=== PATIENT | male | born 2000 | race Caucasian/White ===

== ENCOUNTER 2020-11-30 14:48 | Emergency (ER) | payer MEDICAID, OTHER ==
[~2020-11-30] VITALS: Ht 172.7 cm; Wt 72.7 kg
[2020-11-30 16:58] VITALS: BP 144/63
== END 2020-11-30 17:11 | disposition home or self-care (01) ==
LOC: EMS 14:48
DX: B35.4 Tinea corporis (principal)
CPT/HCPCS: 99282; Z7502

== ENCOUNTER 2020-12-06 09:20 | Emergency (ER) | payer MEDICAID ==
[~2020-12-06] VITALS: Ht 172.7 cm; Wt 75.0 kg
[2020-12-06 09:27] VITALS: BP 131/71
== END 2020-12-06 14:09 | disposition home or self-care (01) ==
LOC: EMS 09:25
DX: L03.311 Cellulitis of abdominal wall (principal)
CPT/HCPCS: 99283